=== PATIENT | female | born 2000 | race Caucasian/White ===

== ENCOUNTER 2023-03-08 18:53 | Emergency (ER) | payer BC ==
[~2023-03-08] VITALS: Ht 170.2 cm; Wt 81.6 kg
== END 2023-03-08 23:50 | disposition home or self-care (01) ==
LOC: ER 18:53
DX: S09.8XXA Other specified injuries of head, initial encounter (principal); W18.39XA Other fall on same level, initial encounter; Y93.89 Activity, other specified; Y92.89 Other specified places as the place of occurrence of the external cause; Y99.8 Other external cause status